=== PATIENT | male | born 1980 | race Caucasian/White ===

== ENCOUNTER 2016-10-30 10:03 | Emergency (ER) | payer OTHER ==
[~2016-10-30] VITALS: Ht 190.5 cm; Wt 113.4 kg
[~2016-10-30 10:03] MED LIST: MAGN400T6 PO; METO-217 PO
[2016-10-30 10:06] VITALS: TEMP 37; Ht 190.5 cm; Wt 113.4 kg
[2016-10-30] MEDS ORDERED: ALBUT/IPRATROP 3MG/0.5MG NEB 3 ML VIAL ONE (10:13)
[2016-10-30] MEDS ORDERED: ALBUT/IPRATROP 3MG/0.5MG NEB 3 ML VIAL INH STA (10:13)
[2016-10-30 10:32] LABS: BASO % 0.3 %; BASO ABS # 0.04 K/uL (0-0.2); COMPLETE YES; EOS % 1.4 %; HEMATOCRIT 45.2 % (42-52); IG% 0.7 %; LYMPH % 21.5 %; LYMPH ABS # 3.13 K/uL (1.2-3.4); MEAN CELL VOLUME 88.5 fL (80-100); MEAN CORPUSCULAR HEMOGLOBIN 31.7 pg (25-34); MEAN CORPUSCULAR HGB CONC 35.8 g/dl (32-36); MEAN PLATELET VOLUME 10.5 fL (7.4-10.4); MONO % 6.8 %; NEUT % 69.3 %; PLATELET COUNT 268 K/uL (130-400); RED BLOOD COUNT 5.11 M/uL (4.7-6.1); WHITE BLOOD COUNT 14.58 K/uL (4.8-10.8)
[2016-10-30] MEDS ORDERED: MELO7.5T5 PO (10:42)
[2016-10-30] MEDS ORDERED: LSN5 PO (10:42)
[2016-10-30] MEDS ORDERED: CARV6.252 PO (10:42)
[2016-10-30 10:45] LABS: BUN/CREATININE RATIO 12.3 (10-20); CALCIUM 9.2 mg/dl (8.5-10.1); POTASSIUM 3.9 mmol/L (3.5-5.1)
[2016-10-30] MEDS ORDERED: DEXAMETHASONE SOD INJ 10 MG/ML VIAL IV ONE (10:45)
--- NOTE | 2016-10-30 10:46 | DIAGNOSTIC IMAGING REPORT ---
CHEST ONE VIEW PORTABLE CLINICAL HISTORY: Respiratory distress. Dyspnea. COMPARISON STUDY: No previous studies for comparison. FINDINGS: Lung volumes are normal. Lungs are clear. There is no pneumothorax or pleural effusion. There is borderline enlargement of the cardiac silhouette. There is no evidence of pulmonary edema. IMPRESSION: 1. No acute findings. 2. Borderline cardiomegaly. Electronically signed by: Tyler Sebastian M.D. 10/30/2016 10:45 AM Dictated Date/Time: 10/30/2016 10:44 AM
[2016-10-30 10:48] LABS: ALB/GLOB RATIO 1.3 (0.9-2)
[2016-10-30 12:55] LABS: URINE APPEARANCE CLEAR (CLEAR); URINE BILIRUBIN NEG (NEG); URINE COLOR YELLOW; URINE NITRITE NEG (NEG); URINE PH 5.5 (4.5-7.5); URINE SPECIFIC GRAVITY 1.022 (1.000-1.030); UROBILINOGEN NEG (NEG)
[2016-10-30 12:56] LABS: MANUAL MICROSCOPIC REQUIRED? NO; REVIEW REQ? NO
[2016-10-30] MEDS ORDERED: PRED50TA PO (13:42)
[2016-10-30] MEDS ORDERED: ALBUTEROL HFA 8 GM INHALER INH ONE (13:45)
[2016-10-30 14:30] VITALS: BP 131/74; PULSE 93; O2SAT 95
--- NOTE | 2016-10-30 14:39 | EMERGENCY ROOM VISIT NOTE ---
History Report prepared by Jacinda: Ilda Hood Under the Supervision of: Dr. Lincoln Whittaker M.D. First contact with patient: 10:10 Chief Complaint: RESPIRATORY PROBLEMS Stated Complaint: CHEMICAL BABB IN LUNGS-WORK RELATED INJURY Nursing Triage Summary: inhaled chlorine and acid at work has beeen 20-30 minutes since started History of Present Illness The patient is a 36 year old male who presents to the Emergency Room with complaints of severe and persistent shortness of breath starting a few minutes prior to arrival. The patient was trying to fix a pool issue at [facility]. When he took a look at the filter, the chlorine went on his face. He thinks he may have inhaled some of it. Soon after, he started having a cough and shortness of breath. He also reports mild wheezing. He also complains of a burning, mid-chest pain which occurs with breathing. He currently rates a pain intensity of 5-6/10. He denies any prior lung problems. He has a history of cardiomyopathy and heart palpitations. Pt denies LOC, headache, fevers, chills, diaphoresis, visual changes, neck pain, nausea, vomiting, abdominal pain, back pain, melena, hematochezia, urinary symptoms, numbness, weakness, lymphadenopathy, rash, or other complaints. Source of History: patient Onset: a few minutes prior to arrival Position: other (global) Symptom Intensity: severe Quality: other (shortness of breath) Timing: other (persistent) Associated Symptoms: + chest pain, + cough Review of Systems See HPI for pertinent positives and negatives. A total of ten systems were reviewed and were otherwise negative. Past Medical & Surgical Medical Problems: (1) Cardiomyopathy (2) Heart palpitations Family History Patient reports no known family medical history. Social History Smoking Status: Never Smoker Marital Status: single Occupation Status: employed Current/Historical Medications Scheduled Carvedilol (Coreg), 6.25 MG PO BID Lisinopril (Lisinopril), 5 MG PO DAILY Magnesium Oxide (Mag-Ox), 400 MG PO DAILY Meloxicam (Mobic), 7.5 MG PO DAILY Prednisone (Prednisone), 50 MG PO DAILY Allergies Coded Allergies: No Known Allergies (Unverified , 11/23/13) Physical Exam Vital Signs Date Time Temp Pulse Resp B/P Pulse Ox O2 Delivery O2 Flow Rate FiO2 10/30/16 14:30 93 18 131/74 95 10/30/16 12:39 96 20 130/77 96 Room Air 10/30/16 10:59 74 133/66 92 Room Air 10/30/16 10:22 71 10/30/16 10:07 Room Air 10/30/16 10:06 37.0 64 20 92/63 96 Room Air Physical Exam GENERAL: Awake, alert, uncomfortable-appearing, in no distress HENT: Normocephalic, atraumatic. Oropharynx unremarkable. EYES: Normal conjunctiva. Sclera non-icteric. NECK: Supple. No nuchal rigidity. FROM. No JVD. RESPIRATORY: Clear to auscultation. Frequent cough. CARDIAC: Regular rate, normal rhythm. Extremities warm and well perfused. Pulses equal. ABDOMEN: Soft, non-distended. No tenderness to palpation. No rebound or guarding. No masses. RECTAL: Deferred. MUSCULOSKELETAL: Chest examination reveals no tenderness. The back is symmetrical on inspection without obvious abnormality. There is no CVA tenderness to palpation. No joint edema. LOWER EXTREMITIES: Calves are equal size bilaterally and non-tender. No edema. No discoloration. NEURO: Normal sensorium. No sensory or motor deficits noted. SKIN: No rash or jaundice noted. Medical Decision & Procedures ER Provider Diagnostic Interpretation: X ray results as stated below per my interpretation and radiologist interpretation. CHEST ONE VIEW PORTABLE CLINICAL HISTORY: Respiratory distress. Dyspnea. COMPARISON STUDY: No previous studies for comparison. FINDINGS: Lung volumes are normal. Lungs are clear. There is no pneumothorax or pleural effusion. There is borderline enlargement of the cardiac silhouette. There is no evidence of pulmonary edema. IMPRESSION: 1. No acute findings. 2. Borderline cardiomegaly. Electronically signed by: Tyler Sebastian M.D. 10/30/2016 10:45 AM Dictated Date/Time: 10/30/2016 10:44 AM Laboratory Results 10/30/16 10:15 Red Blood Count 5.11, Mean Corpuscular Volume 88.5, Mean Corpuscular Hemoglobin 31.7, Mean Corpuscular Hemoglobin Concent 35.8, Mean Platelet Volume 10.5, Neutrophils (%) (Auto) 69.3, Lymphocytes (%) (Auto) 21.5, Monocytes (%) (Auto) 6.8, Eosinophils (%) (Auto) 1.4, Basophils (%) (Auto) 0.3, Neutrophils # (Auto) 10.11, Lymphocytes # (Auto) 3.13, Monocytes # (Auto) 0.99, Eosinophils # (Auto) 0.21, Basophils # (Auto) 0.04 10/30/16 10:15 Test 10/30/16 10:15 10/30/16 12:45 White Blood Count 14.58 K/uL (4.8-10.8) Red Blood Count 5.11 M/uL (4.7-6.1) Hemoglobin 16.2 g/dL (14.0-18.0) Hematocrit 45.2 % (42-52) Mean Corpuscular Volume 88.5 fL (80-100) Mean Corpuscular Hemoglobin 31.7 pg (25-34) Mean Corpuscular Hemoglobin Concent 35.8 g/dl (32-36) Platelet Count 268 K/uL (130-400) Mean Platelet Volume 10.5 fL (7.4-10.4) Neutrophils (%) (Auto) 69.3 % Lymphocytes (%) (Auto) 21.5 % Monocytes (%) (Auto) 6.8 % Eosinophils (%) (Auto) 1.4 % Basophils (%) (Auto) 0.3 % Neutrophils # (Auto) 10.11 K/uL (1.4-6.5) Lymphocytes # (Auto) 3.13 K/uL (1.2-3.4) Monocytes # (Auto) 0.99 K/uL (0.11-0.59) Eosinophils # (Auto) 0.21 K/uL (0-0.5) Basophils # (Auto) 0.04 K/uL (0-0.2) RDW Standard Deviation 40.4 fL (36.4-46.3) RDW Coefficient of Variation 12.6 % (11.5-14.5) Immature Granulocyte % (Auto) 0.7 % Immature Granulocyte # (Auto) 0.10 K/uL (0.00-0.02) Anion Gap 8.0 mmol/L (3-11) Est Creatinine Clear Calc Drug Dose 138.8 ml/min Estimated GFR () 111.7 Estimated GFR (Non- 96.4 BUN/Creatinine Ratio 12.3 (10-20) Calcium Level 9.2 mg/dl (8.5-10.1) Total Bilirubin 0.7 mg/dl (0.2-1) Aspartate Amino Transf (AST/SGOT) 15 U/L (15-37) Alanine Aminotransferase (ALT/SGPT) 20 U/L (12-78) Alkaline Phosphatase 79 U/L (45-117) Total Protein 8.1 gm/dl (6.4-8.2) Albumin 4.5 gm/dl (3.4-5.0) Globulin 3.6 gm/dl (2.5-4.0) Albumin/Globulin Ratio 1.3 (0.9-2) Urine Color YELLOW Urine Appearance CLEAR (CLEAR) Urine pH 5.5 (4.5-7.5) Urine Specific [place] 1.022 (1.000-1.030) Urine Protein NEG (NEG) Urine Glucose (UA) NEG (NEG) Urine Ketones 1+ (NEG) Urine Occult Blood NEG (NEG) Urine Nitrite NEG (NEG) Urine Bilirubin NEG (NEG) Urine Urobilinogen NEG (NEG) Urine Leukocyte Esterase NEG (NEG) Laboratory results reviewed by me Medications Administered Medications (Trade) Dose Ordered Sig/Matheus Route Start Time Stop Time Status Last Admin Dose Admin Albuterol/ Ipratropium (Duoneb) 3 ml STK-MED ONCE .ROUTE 10/30/16 10:13 10/30/16 10:15 DC 10/30/16 10:13 3 ML Dexamethasone Sodium Phosphate (Decadron Inj) 10 mg NOW ONCE IV 10/30/16 10:45 10/30/16 10:46 DC 10/30/16 11:07 10 MG Albuterol (Ventolin Hfa Inhaler) 2 puffs NOW ONCE INH 10/30/16 13:45 10/30/16 13:46 DC 10/30/16 13:45 2 PUFFS ECG Indication: SOB/dyspnea Rate (beats per minute): 73 Rhythm: sinus rhythm Findings: PVC, no acute ischemic change, other (bigeminy) Comparison ECG Date: no prior available ED Course 1010: The patient was evaluated in room B04B. A complete history and physical exam was performed. 1045: Decadron Inj 10 mg IV, Albuterol 2 puffs INH 1320: I reevaluated the patient. He does not want to be hospitalized. 1327: I discussed the patient's case with Dr. Groves, director of instructional technology with [facility]. 1334: Dr. Groves reported that the patient's EF normalized a year ago and has been very stable. 1347: I reevaluated the patient. Discussed results and discharge instructions: He verbalized understanding and agreement. The patient is ready for discharge. Medical Decision Triage Nursing notes reviewed. The patient's presentation and history were concerning for chlorine gas exposure. Etiologies such as pneumonitis, pneumonia, COPD, reactive airway disease, CHF, cardiac ischemia, pneumothorax, musculoskeletal, infections, gastrointestinal, as well as others were entertained. The patient was evaluated. His lungs are relatively clear but he had a significant cough. He was given a DuoNeb as well as IV steroids. The patient was feeling better with this. His chest x-ray did not reveal any abnormal findings. ECG showed bigeminy but the patient has a history of ectopy. His blood work showed a mild leukocytosis. Her bleeding is a stress response. Chemistry panel and LFTs were unremarkable. The patient was observed for several hours and was doing very well. He desired discharge. I did discuss the standard observation which would be an additional few hours but the patient declined. I did consult with cardiology to gain insight on his card myopathy. His cardiomyopathy normalized last year per cardiology. Given this finding and the fact the patient does not wish to stay any longer in the hospital I discussed conservative management with him. I will place him on a short course of oral steroids as well as give him a albuterol MDI. If he worsens in any way he does agree to come back to the emergent department right away. I did aspirin follow-up promptly with his primary physician. He was aware that there could be delayed symptoms. I gave my usual and customary discussion regarding this issue. By the evaluation outlined above other emergent etiologies such as those listed in the differential, as well as others, were deemed relatively unlikely. The patient was informed about the findings as listed above. All questions were answered and he was pleased with the treatment. Return instructions were outlined and the patient was discharged in stable condition. The patient was referred to his PCP for follow-up for a recheck of the current condition. The chart was completed utilizing [employer] voice recognition software. Grammatical errors, random word insertions, pronoun errors, and incomplete sentences are an occasional consequence of this system due to software limitations, ambient noise, and hardware issues. Any formal questions or concerns about the content, text, or information contained within the body of this dictation should be directly addressed to the physician for clarification. Consults Time Called: 1311 Consulting Physician: Dr. Groves, director of instructional technology with [facility] Returned Call: 1327 I discussed the patient's case with Dr. Groves, director of instructional technology with [facility]. Impression Primary Impression: Chlorine gas exposure Scribe Attestation The scribe's documentation has been prepared under my direction and personally reviewed by me in its entirety. I confirm that the note above accurately reflects all work, treatment, procedures, and medical decision making performed by me. Departure Information Dispostion Home / Self-Care Prescriptions Prednisone (Prednisone) 50 Mg Tab 50 MG PO DAILY for 4 Days, #4 TAB Prov: Lincoln Whittaker MD 10/30/16 Referrals Josefina Sepulveda M.D. Forms HOME CARE DOCUMENTATION FORM, IMPORTANT VISIT INFORMATION, WORK / SCHOOL INSTRUCTIONS Patient Instructions My [facility] Additional Instructions Albuterol Inhaler: Take 2 puffs four times daily for five days, then as needed. Prednisone 50mg: Once daily until the prescription is finished. It is best to take this earlier in the day as some patients note occasional difficulty falling asleep when taken in the late evening. Acetaminophen(Tylenol) may be used for fever or pain. Use 1000mg every six hours as needed. Avoid using more than 4000mg in a 24 hour period. Rest and drink plenty of fluids. Avoid smoke/smoking, fumes, dust, or chemicals that may affect breathing. Continue current medications. Return to the ER for chest pain, difficulty breathing, fevers, vomiting, worsening of your condition, or as needed. Follow up with your primary physician this coming week for a recheck of your current condition.
== END 2016-10-30 14:34 | disposition home or self-care (01) ==
LOC: C.EDB 10:06
DX: T59.4X1A Toxic effect of chlorine gas, accidental (unintentional), initial encounter (principal)